=== PATIENT | female | born 1955 | race Caucasian/White ===

== ENCOUNTER 2018-01-05 15:31 | Outpatient (CLI) | payer BC | END 2018-01-05 15:32 | disposition home or self-care (01) | LOC: BICMAMMO 15:31 | PROVIDERS: ATTEND Internal Medicine | DX: Z12.31 Encounter for screening mammogram for malignant neoplasm of breast (principal) | CPT/HCPCS: 77063; 77067 ==

== ENCOUNTER 2019-02-02 14:01 | Outpatient (CLI) | payer BC ==
--- NOTE | 2019-02-02 15:19 | BD ---
BONE DENSITOMETRY USING DEXA HISTORY: Postmenopausal screening for osteoporosis. LUMBAR SPINE BMD (g/cm2) T-SCORE Z-SCORE L1 0.923 -0.6 0.8 L2 0.882 -1.3 0.3 L3 0.932 -1.4 0.3 L4 0.943 -1.1 0.7 TOTAL 0.922 -1.1 0.5 NECK 0.758 -0.8 0.6 TOTAL 0.867 -0.6 0.5 There has been an interval reduction of 5% in the BMD of the lumbar spine and an improvement of 6.4% in the BMD of the proximal femur since 05/27/2011. The 10-year fracture risk for a major osteoporotic fracture is 7.3% and for a hip fracture 0.4%. IMPRESSION: Osteopenia. POS: OFF
--- NOTE | 2019-02-02 16:04 | MMO ---
Bilateral MAMMO Bilat Screen [facility]. CLINICAL HISTORY: Patient is 63 years old and is seen for screening. The patient has no family history of breast cancer. The patient has no personal history of cancer. VIEWS: The views performed were: bilateral craniocaudal with tomosynthesis; bilateral mediolateral oblique with tomosynthesis; and bilateral exaggerated craniocaudal. FILMS COMPARED: The present examination has been compared to prior imaging studies performed at [facility] on 03/29/2013, 04/02/2014, 10/30/2015, 11/24/2016 and 01/05/2018. MAMMOGRAM FINDINGS: The breasts are heterogeneously dense, which could obscure a lesion on mammography. There are no suspicious masses, suspicious calcifications, or new areas of architectural distortion. IMPRESSION: THERE IS NO MAMMOGRAPHIC EVIDENCE OF MALIGNANCY. A ROUTINE FOLLOW-UP MAMMOGRAM IN 1 YEAR IS RECOMMENDED. THE RESULTS OF THIS EXAM WERE SENT TO THE PATIENT. ACR BI-RADS Category 1 - Negative MAMMOGRAPHY NOTE: 1. A negative mammogram report should not delay a biopsy if a dominant of clinically suspicious mass is present. 2. Approximately 10% to 15% of breast cancers are not detected by mammography. 3. Adenosis and dense breasts may obscure an underlying neoplasm.
== END 2019-02-02 14:02 | disposition home or self-care (01) ==
LOC: BICMAMMO 14:01
PROVIDERS: ATTEND Family Medicine
DX: Z12.31 Encounter for screening mammogram for malignant neoplasm of breast (principal); Z13.820 Encounter for screening for osteoporosis; N95.9 Unspecified menopausal and perimenopausal disorder; M85.88 Other specified disorders of bone density and structure, other site
CPT/HCPCS: 77063; 77067; 77080

== ENCOUNTER 2019-02-06 06:50 | Outpatient (CLI) | payer BC ==
--- NOTE | 2019-02-06 07:46 | ULT ---
Abdominal Ultrasound: Multiple grayscale images of right upper quadrant obtained according to protocol. INDICATION: Pain, Persistent Satiety FINDINGS: Liver: Normal Gallbladder: Normal Gallbladder wall: Normal. Morales's Sign: Negative Common bile duct is normal. Ascites: None Spleen: Punctate foci of increased echogenicity are seen, nonspecific and of doubtful clinical signif icance. This could either relate to echogenicity from punctate calcification or traversing vessel wall Pancreas: Partially obscured by bowel content, limiting assessment. Kidneys: No acute abnormalities. Aorta/IVC: No acute process. IMPRESSION: No acute abnormalities.
--- NOTE | 2019-02-06 07:47 | ULT ---
Transabdominal pelvic ultrasound INDICATION: History of abdominal fullness TECHNIQUE: Grayscale, color Doppler images were obtained of the pelvis via transabdominal approach on ly. FINDINGS: Uterus: Surgically absent Right adnexa: Not visualized. Left adnexa: Not visualized. Free fluid: None present. Bladder: Within normal limits. IMPRESSION: 1. Hysterectomy. 2. Nonvisualization of adnexa. 3. No intrapelvic mass or lymphadenopathy demonstrated. 4. No free fluid demonstrated.
== END 2019-02-06 06:51 | disposition home or self-care (01) ==
LOC: BICULT 06:50
PROVIDERS: ATTEND Family Medicine
DX: R19.8 Other specified symptoms and signs involving the digestive system and abdomen (principal); Z90.710 Acquired absence of both cervix and uterus
CPT/HCPCS: 76700; 76856

== ENCOUNTER 2020-06-24 12:14 | Outpatient (CLI) | payer BC ==
--- NOTE | 2020-06-24 13:09 | MMO ---
Bilateral MAMMO Bilat Screen [facility]. CLINICAL HISTORY: Patient is 65 years old and is seen for screening. The patient has the following family history of breast cancer: sister. The patient has no personal history of cancer. VIEWS: The views performed were: bilateral craniocaudal with tomosynthesis and bilateral mediolateral oblique with tomosynthesis. FILMS COMPARED: The present examination has been compared to prior imaging studies performed at [facility] on 10/30/2015, 11/24/2016, 01/05/2018 and 02/02/2019. This study has been interpreted with the assistance of computer-aided detection. MAMMOGRAM FINDINGS: The breasts are heterogeneously dense, which could obscure a lesion on mammography. There are no suspicious masses, suspicious calcifications, or new areas of architectural distortion. IMPRESSION: THERE IS NO MAMMOGRAPHIC EVIDENCE OF MALIGNANCY. A ROUTINE FOLLOW-UP MAMMOGRAM IN 1 YEAR IS RECOMMENDED. THE RESULTS OF THIS EXAM WERE SENT TO THE PATIENT. ACR BI-RADS Category 1 - Negative MAMMOGRAPHY NOTE: 1. A negative mammogram report should not delay a biopsy if a dominant of clinically suspicious mass is present. 2. Approximately 10% to 15% of breast cancers are not detected by mammography. 3. Adenosis and dense breasts may obscure an underlying neoplasm. Reported by: PAO COTTRELL MD Electonically Signed: [id number]
== END 2020-06-24 12:15 | disposition home or self-care (01) ==
LOC: BICMAMMO 12:14
PROVIDERS: ATTEND Internal Medicine
DX: Z12.31 Encounter for screening mammogram for malignant neoplasm of breast (principal); Z80.3 Family history of malignant neoplasm of breast
CPT/HCPCS: 77063; 77067